=== PATIENT | male | born 1990 | race Asian ===

== ENCOUNTER 2019-05-21 19:14 | Emergency (ER) | payer OTHER ==
--- NOTE | 2019-05-21 19:43 | PDOC ---
Rapid Medical Evaluation Time Seen by Provider: 05/21/19 19:39 Medical Evaluation: 05/21/19 19:39 This patient had brief evaluation by me cc: medication refill HPI: Patient brought in by [facility] personnel for medication refill. As per personnel patient ran out of his medication PE: NAD non verbal follows commands orders: none This patient will proceed to the emergency room for further evaluation,. Discharge Disposition - Diagnosis Medication refill - Referrals - Patient Instructions - Post Discharge Activity
[2019-05-21 19:50] VITALS: BP 114/71; PULSE 96; TEMP 97.6; BMI 29.6
[2019-05-21] MEDS ORDERED: cloBAZam 10 MG TABLET PO ONE (22:00)
--- NOTE | 2019-05-21 22:02 | PDOC ---
History of Present Illness - General Chief Complaint: RX Refill Stated Complaint: MED REFILL Time Seen by Provider: 05/21/19 19:39 - History of Present Illness Initial Comments: 05/21/19 22:00 Patient is here with a zoo caretaker from the [facility] he resides at requesting a nighttime dose of clonazepam for sleep and for seizure disorder Past History - Past Medical History Allergies/Adverse Reactions: Allergies Allergy/AdvReac Type Severity Reaction Status Date / Time No Known Allergies Allergy Verified 05/21/19 19:43 COPD: No Psychiatric Problems: Yes (Schizophrenia,bipolar) Seizures: Yes Other medical history: ADHD,anxiety,sleep disorder - Immunization History Immunization Up to Date: Yes - Psycho Social/Smoking Cessation Hx Smoking History: Never smoked Have you smoked in the past 12 months: No Information on smoking cessation initiated: No Hx Alcohol Use: No Drug/Substance Use Hx: No Review of Systems - Review of Systems Able to Perform ROS?: No *Physical Exam - Vital Signs Last Vital Signs Temp Pulse Resp BP Pulse Ox 97.6 F 96 H 20 114/71 100 05/21/19 19:46 05/21/19 19:46 05/21/19 19:46 05/21/19 19:46 05/21/19 19:46 - Physical Exam 05/21/19 22:01 GENERAL: The patient is awake, in no acute distress. HEAD: Normal with no signs of trauma. EYES: sclera anicteric, conjunctiva clear. NEUROLOGICAL: Cranial nerves II through XII grossly intact. Medical Decision Making - Medical Decision Making 05/21/19 22:01 Medication ordered proof was shown to me by the MAR from the retirement Discharge - Discharge Information Problems reviewed: Yes Clinical Impression/Diagnosis: Medication refill Condition: Stable Disposition: HOME - Admission No - Follow up/Referral - Patient Discharge Instructions Additional Instructions: Return to the emergency room for further issues and follow-up with your primary care physician for medication refills and orders - Post Discharge Activity
== END 2019-05-21 23:40 | disposition home or self-care (01) ==
LOC: JERFT 19:14
DX: Z76.0 Encounter for issue of repeat prescription (principal); G40.909 Epilepsy, unspecified, not intractable, without status epilepticus; G47.9 Sleep disorder, unspecified; F90.9 Attention-deficit hyperactivity disorder, unspecified type; F20.9 Schizophrenia, unspecified; F31.9 Bipolar disorder, unspecified; F41.9 Anxiety disorder, unspecified
CPT/HCPCS: 99281-25

== ENCOUNTER 2019-05-22 20:18 | Emergency (ER) | payer OTHER ==
[2019-05-22 20:39] VITALS: BP 105/72; PULSE 86; TEMP 98.2; BMI 27.4
[2019-05-22] MEDS ORDERED: cloBAZam 10 MG TABLET PO ONE (20:41)
--- NOTE | 2019-05-22 20:43 | PDOC ---
History of Present Illness - General Chief Complaint: RX Refill Stated Complaint: SICK Time Seen by Provider: 05/22/19 20:40 - History of Present Illness Initial Comments: 05/22/19 20:42 29-year-old male returns for nighttime medication he is unable to get it from his facility Past History - Past Medical History Allergies/Adverse Reactions: Allergies Allergy/AdvReac Type Severity Reaction Status Date / Time No Known Allergies Allergy Verified 05/22/19 20:35 COPD: No Psychiatric Problems: Yes (Schizophrenia,bipolar) Seizures: Yes - Immunization History Immunization Up to Date: Yes - Psycho Social/Smoking Cessation Hx Smoking History: Never smoked Have you smoked in the past 12 months: No Hx Alcohol Use: No Drug/Substance Use Hx: No Review of Systems - Review of Systems Able to Perform ROS?: No *Physical Exam - Vital Signs Last Vital Signs Temp Pulse Resp BP Pulse Ox 98.2 F 86 16 105/72 97 05/22/19 20:35 05/22/19 20:35 05/22/19 20:35 05/22/19 20:35 05/22/19 20:35 - Physical Exam 05/22/19 20:42 GENERAL: The patient is awake, alert, and fully oriented, in no acute distress. NEUROLOGICAL: Cranial nerves II through XII grossly intact. SKIN: Warm, Dry, normal turgor, no rashes or lesions noted. Medical Decision Making - Medical Decision Making 05/22/19 20:42 Medication dispensed without issues Discharge - Discharge Information Problems reviewed: Yes Clinical Impression/Diagnosis: Medication refill Condition: Stable - Admission No - Follow up/Referral - Patient Discharge Instructions Additional Instructions: Return to the emergency room for further issues - Post Discharge Activity
[2019-05-22] MEDS ORDERED: cloBAZam 10 MG TABLET ONE (20:45)
== END 2019-05-22 20:51 | disposition home or self-care (01) ==
LOC: JERFT 20:18
DX: Z76.0 Encounter for issue of repeat prescription (principal); G40.909 Epilepsy, unspecified, not intractable, without status epilepticus; F20.9 Schizophrenia, unspecified; F31.9 Bipolar disorder, unspecified
CPT/HCPCS: 99282-25

== ENCOUNTER 2020-06-28 16:44 | Emergency (ER) | payer OTHER ==
[2020-06-28 16:56] VITALS: BP 115/64; PULSE 78; TEMP 97; BMI 32.9
== END 2020-06-28 17:18 | disposition home or self-care (01) ==
LOC: JERFT 16:44
DX: G40.89 Other seizures (principal); Z76.0 Encounter for issue of repeat prescription
CPT/HCPCS: 99281-25

== ENCOUNTER 2020-08-23 09:18 | Emergency (ER) | payer OTHER ==
[2020-08-23 09:37] VITALS: BMI 27.6
[2020-08-23] MEDS ORDERED: MIDAZOLAM HCL 2 MG/2 ML SINGLE DOSE VIAL IM ONE (10:17)
[2020-08-23] MEDS ORDERED: KETAMINE HCL 500 MG/10 ML VIAL IM ONE (12:29)
[2020-08-23] MEDS ORDERED: LIDOCAINE 1%/EPI 1:100000 (50 ML MULTI DOSE VIAL) ONE (12:54)
[2020-08-23 14:24] VITALS: BP 113/72; PULSE 71
== END 2020-08-23 14:25 | disposition home or self-care (01) ==
LOC: JER 09:18
PROC: 3E023GC Introduction of Other Therapeutic Substance into Muscle, Percutaneous Approach (ICD-10-PCS; principal; 2020-08-23)
DX: G40.89 Other seizures (principal); S01.81XA Laceration without foreign body of other part of head, initial encounter; S09.90XA Unspecified injury of head, initial encounter
CPT/HCPCS: 70450-TC; 82962; 99284-25

== ENCOUNTER 2020-08-29 12:24 | Emergency (ER) | payer OTHER ==
[2020-08-29 12:51] VITALS: BP 122/71; PULSE 82; TEMP 97.5; BMI 27.4
== END 2020-08-29 13:20 | disposition home or self-care (01) ==
LOC: JERFT 12:24
DX: Z48.02 Encounter for removal of sutures (principal)
CPT/HCPCS: 99281-25

== ENCOUNTER 2021-05-28 17:42 | Emergency (ER) | payer OTHER ==
[2021-05-28 17:53] VITALS: BP 121/74; PULSE 80; BMI 25.7
== END 2021-05-28 18:33 | disposition home or self-care (01) ==
LOC: JERFT 17:42
DX: Z76.0 Encounter for issue of repeat prescription (principal)
CPT/HCPCS: 99281-25

== ENCOUNTER 2022-03-08 20:19 | Emergency (ER) | payer OTHER ==
[2022-03-08 20:25] VITALS: BP 123/70; PULSE 85; RESP 17; TEMP 98.1; BMI 30.9
[2022-03-08] MEDS ORDERED: DIPHTH,PERTUSS(ACELL),TET 0.5 ML DISP.SYRIN IM ONE (20:49)
== END 2022-03-08 21:04 | disposition home or self-care (01) ==
LOC: JERFT 20:19
PROC: 0HQ1XZZ Repair Face Skin, External Approach (ICD-10-PCS; principal; 2022-03-08)
PROC: 3E0234Z Introduction of Serum, Toxoid and Vaccine into Muscle, Percutaneous Approach (ICD-10-PCS; 2022-03-08)
DX: S01.81XA Laceration without foreign body of other part of head, initial encounter (principal); W22.8XXA Striking against or struck by other objects, initial encounter
CPT/HCPCS: 12011-25; 90471; 90715; 99282-25

== ENCOUNTER 2022-03-13 10:46 | Emergency (ER) | payer OTHER ==
[2022-03-13 10:55] VITALS: BP 114/80; PULSE 66; RESP 18; TEMP 98.4; BMI 27.6
== END 2022-03-13 12:14 | disposition home or self-care (01) ==
LOC: JERFT 10:46 → JER 10:46 → JERFT 12:14
DX: Z48.02 Encounter for removal of sutures (principal)
CPT/HCPCS: 99281-25

== ENCOUNTER 2023-04-12 18:57 | Inpatient (IN) | payer OTHER ==
[2023-04-12 22:49] LABS: BASO % 0.5 % (0-2.0); EOS % 1.6 % (0-4.5); HEMATOCRIT 50.1 % (35.4-49); LYMPH % 28.9 % (8-40); MCH 31.3 pg (25.7-33.7); MEAN PLT VOLUME 9.3 fl (7.5-11.1); MONO % 6.7 % (3.8-10.2); NEUT % 62.3 % (42.8-82.8); PLATELET COUNT 201 10^3/uL (134-434); RBC 5.44 M/mm3 (4.00-5.60); RDW 13.4 % (11.9-15.9); WHITE BLOOD COUNT 6.9 K/mm3 (4.0-10.0)
[2023-04-12 23:00] LABS: PH,URINE 5.5 (5.0-8.0); URINE APPEARANCE CLEAR; URINE BILIRUBIN NEGATIVE (NEGATIVE); URINE COLOR YELLOW; URINE GLUCOSE (UA) NEGATIVE (NEGATIVE); URINE KETONE NEGATIVE (NEGATIVE); URINE LEUK ESTERASE NEGATIVE (NEGATIVE); URINE NITRITE NEGATIVE (NEGATIVE); URINE PROTEIN NEGATIVE (NEGATIVE); URINE UROBILINOGEN 0.2 mg/dL (0.2-1.0)
[2023-04-12 23:18] LABS: POTASSIUM 4.4 mmol/L (3.5-5.1)
[2023-04-12 23:20] LABS: CALCIUM 8.9 mg/dL (8.5-10.1)
[2023-04-12 23:21] LABS: ALBUMIN 4.4 g/dl (3.4-5.0); BLOOD UREA NITROGEN 16.7 mg/dL (7-18)
[2023-04-12 23:25] LABS: BILIRUBIN,TOTAL 0.3 mg/dL (0.2-1); TOT PROT 9.2 g/dl (6.4-8.2)
[2023-04-12] MEDS ORDERED: CEFTRIAXONE 1,000 MG in DEXTROSE 5%-WATER - 50 ML IVPB ONE (23:34)
[2023-04-12] MEDS ORDERED: AZITHROMYCIN IVPB 500 MG in DEXTROSE 5%-WATER - 250 ML IVPB ONE (23:35)
[2023-04-13] MEDS ORDERED: CEFTRIAXONE 1 GM/50 ML BAG ONE (00:11)
[2023-04-13] MEDS ORDERED: AZITHROMYCIN IVPB 500 MG/250 ML BAG IVPB ONE (00:12)
[2023-04-13] MEDS ORDERED: VALPROATE SODIUM 250 MG/5 ML UNIT DOSE CUP PO ONE (02:30)
[2023-04-13] MEDS ORDERED: LEVOTHYROXINE NA 100 MCG TABLET (FP) ONE (05:25)
[2023-04-13] MEDS: LEVOTHYROXINE NA 100 MCG TABLET (FP) PO SCH (06:03)
[2023-04-13] MEDS: SODIUM CHLORIDE 1,000 ML IV SCH (06:19)
[2023-04-13 07:27] LABS: HEMATOCRIT 43.7 % (35.4-49); HEMOGLOBIN 14.8 GM/dL (11.7-16.9); MCH 31.7 pg (25.7-33.7); MCHC 33.8 g/dl (32.0-35.9); MEAN CELL VOLUME 93.8 fl (80-96); MEAN PLT VOLUME 8.9 fl (7.5-11.1); PLATELET COUNT 141 10^3/uL (134-434); RBC 4.66 M/mm3 (4.00-5.60); WHITE BLOOD COUNT 9.1 K/mm3 (4.0-10.0)
[2023-04-13 08:33] LABS: POTASSIUM 3.8 mmol/L (3.5-5.1)
[2023-04-13 08:35] LABS: CALCIUM 8.2 mg/dL (8.5-10.1)
[2023-04-13 08:36] LABS: BLOOD UREA NITROGEN 12.8 mg/dL (7-18)
[2023-04-13 08:39] LABS: CREATININE 0.8 mg/dL (0.55-1.3)
[2023-04-13] MEDS: LORATADINE 10 MG TABLET PO SCH (12:39)
[2023-04-13] MEDS: DOCUSATE SODIUM 100 MG CAPSULE (FP) PO SCH (12:39)
[2023-04-13] MEDS: CALCIUM (OYSTER SHELL) 500 MG TABLET (FP) PO SCH ×2 (12:40→23:00)
[2023-04-13] MEDS: TOPIRAMATE 100 MG TABLET PO SCH ×2 (12:40→23:00)
[2023-04-13] MEDS: MULTIVITAMINS (DAILY MVI) TABLET (FP) PO SCH (12:40)
[2023-04-13] MEDS: CHOLECALCIFEROL (VIT D3) 1,000 UNIT (25 MCG) TABLET PO SCH (12:40)
[2023-04-13] MEDS: POLYETHYLENE GLYCOL (HEALTHYLAX) 3350 17 GM PACKET PO SCH (12:40)
[2023-04-13] MEDS: ENOXAPARIN NA (PORCINE) 40 MG/0.4 ML DISP.SYRIN SQ SCH (12:40)
[2023-04-13] MEDS: FLUTICASONE PROP 0.05% 16 GM NASAL SPRAY NS SCH (12:40)
[2023-04-13] MEDS ORDERED: clonazePAM 0.5 MG TABLET ONE (12:41)
[2023-04-13] MEDS: clonazePAM 0.5 MG TABLET PO SCH (12:44)
[2023-04-13] MEDS: VALPROATE SODIUM 250 MG/5 ML UNIT DOSE CUP PO SCH (22:41)
[2023-04-13] MEDS ORDERED: cloBAZam 10 MG TABLET ONE (22:42)
[2023-04-13] MEDS ORDERED: cloNIDine HCL 0.1 MG TABLET ONE (22:42)
[2023-04-13] MEDS: cloBAZam 10 MG TABLET PO SCH (23:00)
[2023-04-13] MEDS: cloNIDine HCL 0.1 MG TABLET PO SCH (23:00)
[2023-04-13] MEDS: BENZTROPINE MESYLATE 1 MG TABLET PO SCH (23:00)
[2023-04-13] MEDS: MELATONIN 1 MG TABLET PO SCH (23:00)
[2023-04-14] MEDS: SODIUM CHLORIDE 1,000 ML IV SCH (02:45)
[2023-04-14] MEDS ORDERED: clonazePAM 0.5 MG TABLET ONE (08:53)
[2023-04-14] MEDS: LEVOTHYROXINE NA 100 MCG TABLET (FP) PO SCH (09:06)
[2023-04-14] MEDS: clonazePAM 0.5 MG TABLET PO SCH (09:07)
[2023-04-14] MEDS: TOPIRAMATE 100 MG TABLET PO SCH ×2 (09:07→22:07)
[2023-04-14] MEDS: CALCIUM (OYSTER SHELL) 500 MG TABLET (FP) PO SCH ×2 (09:07→22:07)
[2023-04-14] MEDS: POLYETHYLENE GLYCOL (HEALTHYLAX) 3350 17 GM PACKET PO SCH (09:07)
[2023-04-14] MEDS: CHOLECALCIFEROL (VIT D3) 1,000 UNIT (25 MCG) TABLET PO SCH (09:07)
[2023-04-14] MEDS: DOCUSATE SODIUM 100 MG CAPSULE (FP) PO SCH (09:07)
[2023-04-14] MEDS: MULTIVITAMINS (DAILY MVI) TABLET (FP) PO SCH (09:07)
[2023-04-14] MEDS: LORATADINE 10 MG TABLET PO SCH (09:07)
[2023-04-14] MEDS: FLUTICASONE PROP 0.05% 16 GM NASAL SPRAY NS SCH (09:07)
[2023-04-14] MEDS: ENOXAPARIN NA (PORCINE) 40 MG/0.4 ML DISP.SYRIN SQ SCH (09:07)
[2023-04-14] MEDS ORDERED: PIPERACILLIN/TAZOB 3.375 GM 3.375 GM/50 ML BAG IVPB ONE ×2 (11:34→17:38)
[2023-04-14] MEDS ORDERED: PIPERACILLIN/TAZOB 3.375 GM 3.375 GM in DEXTROSE 5%-WATER - 50 ML IVPB SCH ×2 (11:45→18:00)
[2023-04-14] MEDS: cloBAZam 10 MG TABLET PO SCH (22:07)
[2023-04-14] MEDS: MELATONIN 1 MG TABLET PO SCH (22:07)
[2023-04-14] MEDS: cloNIDine HCL 0.1 MG TABLET PO SCH (22:07)
[2023-04-14] MEDS: VALPROATE SODIUM 250 MG/5 ML UNIT DOSE CUP PO SCH (22:07)
[2023-04-14] MEDS: BENZTROPINE MESYLATE 1 MG TABLET PO SCH (22:11)
[2023-04-14] MEDS ORDERED: LORazepam 2 MG/ML SDV VIAL IVPUSH PRN (23:40)
[2023-04-15] MEDS: SODIUM CHLORIDE 1,000 ML IV SCH ×2 (01:28→07:39)
[2023-04-15] MEDS: PIPERACILLIN/TAZOB 3.375 GM 3.375 GM in DEXTROSE 5%-WATER - 50 ML IVPB SCH ×3 (01:29→10:19)
[2023-04-15] MEDS: LEVOTHYROXINE NA 100 MCG TABLET (FP) PO SCH (06:51)
[2023-04-15] MEDS: CHOLECALCIFEROL (VIT D3) 1,000 UNIT (25 MCG) TABLET PO SCH (09:58)
[2023-04-15] MEDS: MULTIVITAMINS (DAILY MVI) TABLET (FP) PO SCH (09:59)
[2023-04-15] MEDS: TOPIRAMATE 100 MG TABLET PO SCH ×2 (09:59→22:00)
[2023-04-15] MEDS: LORATADINE 10 MG TABLET PO SCH (09:59)
[2023-04-15] MEDS: DOCUSATE SODIUM 100 MG CAPSULE (FP) PO SCH (09:59)
[2023-04-15] MEDS: POLYETHYLENE GLYCOL (HEALTHYLAX) 3350 17 GM PACKET PO SCH (09:59)
[2023-04-15] MEDS: CALCIUM (OYSTER SHELL) 500 MG TABLET (FP) PO SCH ×2 (09:59→22:02)
[2023-04-15] MEDS: clonazePAM 0.5 MG TABLET PO SCH (09:59)
[2023-04-15 10:00] LABS: BASO % 0.3 % (0-2.0); EOS % 2.5 % (0-4.5); HEMATOCRIT 41.9 % (35.4-49); HEMOGLOBIN 14.2 GM/dL (11.7-16.9); LYMPH % 30.5 % (8-40); MCHC 33.8 g/dl (32.0-35.9); MEAN CELL VOLUME 91.8 fl (80-96); MEAN PLT VOLUME 9.1 fl (7.5-11.1); MONO % 10.7 % (3.8-10.2); PLATELET COUNT 137 10^3/uL (134-434); RBC 4.57 M/mm3 (4.00-5.60); RDW 13.3 % (11.9-15.9); WHITE BLOOD COUNT 6.5 K/mm3 (4.0-10.0)
[2023-04-15] MEDS: ENOXAPARIN NA (PORCINE) 40 MG/0.4 ML DISP.SYRIN SQ SCH (10:00)
[2023-04-15 10:15] LABS: POTASSIUM 3.7 mmol/L (3.5-5.1)
[2023-04-15 10:20] LABS: BLOOD UREA NITROGEN 15.4 mg/dL (7-18); CALCIUM 8.4 mg/dL (8.5-10.1)
[2023-04-15 10:24] LABS: BILIRUBIN,TOTAL 0.7 mg/dL (0.2-1)
[2023-04-15 10:27] LABS: ALBUMIN 3.3 g/dl (3.4-5.0); TOT PROT 6.9 g/dl (6.4-8.2)
[2023-04-15] MEDS: FLUTICASONE PROP 0.05% 16 GM NASAL SPRAY NS SCH (10:49)
[2023-04-15] MEDS: ARIPiprazole 2 MG TABLET PO SCH ×3 (11:37→16:52)
[2023-04-15 12:50] VITALS: BMI 31.0
[2023-04-15] MEDS: ACETYLCYSTEINE 600 MG PO SCH ×2 (16:51→16:52)
[2023-04-15] MEDS: AMOX TR/POT CLAV 875MG/125MG TABLETS (FP) PO SCH (18:37)
[2023-04-15] MEDS: cloBAZam 10 MG TABLET PO SCH (21:58)
[2023-04-15] MEDS: cloNIDine HCL 0.1 MG TABLET PO SCH (21:59)
[2023-04-15] MEDS: BENZTROPINE MESYLATE 1 MG TABLET PO SCH (22:00)
[2023-04-15] MEDS: MELATONIN 1 MG TABLET PO SCH (22:01)
[2023-04-15] MEDS: VALPROATE SODIUM 250 MG/5 ML UNIT DOSE CUP PO SCH (22:02)
[2023-04-15] MEDS: LORazepam 1 MG TABLET PO PRN (22:42)
[2023-04-16] MEDS: LEVOTHYROXINE NA 100 MCG TABLET (FP) PO SCH (06:23)
[2023-04-16] MEDS: CHOLECALCIFEROL (VIT D3) 1,000 UNIT (25 MCG) TABLET PO SCH (10:20)
[2023-04-16] MEDS: TOPIRAMATE 100 MG TABLET PO SCH ×2 (10:20→21:51)
[2023-04-16] MEDS: ENOXAPARIN NA (PORCINE) 40 MG/0.4 ML DISP.SYRIN SQ SCH (10:21)
[2023-04-16] MEDS: LORATADINE 10 MG TABLET PO SCH (10:21)
[2023-04-16] MEDS: MULTIVITAMINS (DAILY MVI) TABLET (FP) PO SCH (10:21)
[2023-04-16] MEDS: clonazePAM 0.5 MG TABLET PO SCH (10:21)
[2023-04-16] MEDS: DOCUSATE SODIUM 100 MG CAPSULE (FP) PO SCH (10:21)
[2023-04-16] MEDS: CALCIUM (OYSTER SHELL) 500 MG TABLET (FP) PO SCH ×2 (10:21→21:52)
[2023-04-16] MEDS: POLYETHYLENE GLYCOL (HEALTHYLAX) 3350 17 GM PACKET PO SCH (10:22)
[2023-04-16] MEDS: AMOX TR/POT CLAV 875MG/125MG TABLETS (FP) PO SCH ×2 (10:22→18:11)
[2023-04-16] MEDS: ARIPiprazole 2 MG TABLET PO SCH (10:24)
[2023-04-16] MEDS: FLUTICASONE PROP 0.05% 16 GM NASAL SPRAY NS SCH (11:21)
[2023-04-16] MEDS: LORazepam 1 MG TABLET PO PRN (12:38)
[2023-04-16] MEDS: MELATONIN 1 MG TABLET PO SCH (21:51)
[2023-04-16] MEDS: cloBAZam 10 MG TABLET PO SCH (21:51)
[2023-04-16] MEDS: VALPROATE SODIUM 250 MG/5 ML UNIT DOSE CUP PO SCH (21:51)
[2023-04-16] MEDS: cloNIDine HCL 0.1 MG TABLET PO SCH (21:52)
[2023-04-16] MEDS: BENZTROPINE MESYLATE 1 MG TABLET PO SCH (21:52)
[2023-04-16 23:20] VITALS: RESP 20
[2023-04-17] MEDS: LEVOTHYROXINE NA 100 MCG TABLET (FP) PO SCH (06:08)
[2023-04-17] MEDS: LORazepam 1 MG TABLET PO PRN (06:08)
[2023-04-17 06:10] VITALS: BP 110/70; PULSE 52; TEMP 97.4
[2023-04-17] MEDS: AMOX TR/POT CLAV 875MG/125MG TABLETS (FP) PO SCH (10:00)
[2023-04-17] MEDS: clonazePAM 0.5 MG TABLET PO SCH (10:00)
[2023-04-17] MEDS: POLYETHYLENE GLYCOL (HEALTHYLAX) 3350 17 GM PACKET PO SCH (10:01)
[2023-04-17] MEDS: TOPIRAMATE 100 MG TABLET PO SCH (10:01)
[2023-04-17] MEDS: CHOLECALCIFEROL (VIT D3) 1,000 UNIT (25 MCG) TABLET PO SCH (10:01)
[2023-04-17] MEDS: CALCIUM (OYSTER SHELL) 500 MG TABLET (FP) PO SCH (10:01)
[2023-04-17] MEDS: LORATADINE 10 MG TABLET PO SCH (10:01)
[2023-04-17] MEDS: MULTIVITAMINS (DAILY MVI) TABLET (FP) PO SCH (10:01)
[2023-04-17] MEDS: DOCUSATE SODIUM 100 MG CAPSULE (FP) PO SCH (10:01)
[2023-04-17] MEDS: FLUTICASONE PROP 0.05% 16 GM NASAL SPRAY NS SCH (10:02)
[2023-04-17] MEDS: ENOXAPARIN NA (PORCINE) 40 MG/0.4 ML DISP.SYRIN SQ SCH (10:02)
[2023-04-17] MEDS: ARIPiprazole 2 MG TABLET PO SCH (10:43)
== END 2023-04-17 13:34 | disposition home or self-care (01) | DRG 53 ==
LOC: JER 18:57 → JERBED 04-13 08:20 → J8W 04-14 19:33
PROVIDERS: ADMIT Internal Medicine; ATTEND Internal Medicine
DX: G40.409 Other generalized epilepsy and epileptic syndromes, not intractable, without status epilepticus (principal); J18.9 Pneumonia, unspecified organism; F20.9 Schizophrenia, unspecified; E03.9 Hypothyroidism, unspecified; F31.9 Bipolar disorder, unspecified; F79 Unspecified intellectual disabilities; F84.0 Autistic disorder; F90.9 Attention-deficit hyperactivity disorder, unspecified type
CPT/HCPCS: 0241U-QW; 36415; 70450-TC; 71045-TC-FY; 71250-TC; 80048; 80053; 80164; 81003; 83605; 83735; 84100; 84439; 84443; 84484; 85025; 85027; 87040; 87086; 87635; 93005; 93010; 99285-25